=== PATIENT | female | born 1955 | race Caucasian/White ===

== ENCOUNTER 2016-12-14 10:52 | Day surgery (SDC) | payer OTHER ==
[2016-12-14] MEDS ORDERED: LACTATED RINGERS 1,000 ML IV ONE (11:25)
[2016-12-14] MEDS ORDERED: MIDAZOLAM 2 MG/2 ML VIAL IVP ONE (14:00)
[2016-12-14] MEDS ORDERED: fentaNYL 100 MCG/2 ML VIAL IVP ONE (14:00)
[2016-12-14 14:16] VITALS: BP 107/61
== END 2016-12-14 10:53 | disposition home or self-care (01) ==
LOC: SDS 10:52
PROVIDERS: ATTEND Surgery
PROC: 0DJD8ZZ Inspection of Lower Intestinal Tract, Via Natural or Artificial Opening Endoscopic (ICD-10-PCS; principal; 2016-12-14 12:30)
DX: Z12.11 Encounter for screening for malignant neoplasm of colon (principal); K57.30 Diverticulosis of large intestine without perforation or abscess without bleeding; I10 Essential (primary) hypertension; K21.9 Gastro-esophageal reflux disease without esophagitis; Z87.891 Personal history of nicotine dependence
CPT/HCPCS: 45378; J7120

== ENCOUNTER 2020-10-31 08:00 | Outpatient (CLI) | payer OTHER ==
[2020-10-31 20:45] LABS: BACTERIAL VAGINOSIS DNA NEGATIVE (NEGATIVE); CANDIDA GLABRATA DNA NEGATIVE (NEGATIVE); CANDIDA GROUP DNA NEGATIVE (NEGATIVE); CANDIDA KRUSEI DNA NEGATIVE (NEGATIVE); TRICHOMONAS VAGINALIS DNA NEGATIVE (NEGATIVE)
== END 2020-10-31 23:59 | disposition home or self-care (01) ==
LOC: LAB.S 08:00
PROVIDERS: ATTEND Physician Assistant
DX: B37.3 Candidiasis of vulva and vagina (principal); R35.0 Frequency of micturition
CPT/HCPCS: 87077; 87086; 87181; 87661; 87801

== ENCOUNTER 2021-01-27 08:44 | Outpatient (CLI) | payer OTHER ==
--- NOTE | 2021-01-31 09:37 | Mammography Report ---
BILATERAL DIGITAL SCREENING MAMMOGRAM 3D/2D WITH EXAGGERATED CC: 01/27/2021 CLINICAL: Family history of breast cancer. Comparison is made to exams dated: 06/17/2019 mammogram, 01/25/2018 mammogram, and 01/16/2017 mammogram - [facility]. The tissue of both breasts is heterogeneously dense. This may lower the sensit ivity of mammography. There are benign calcifications in both breasts. There also are benign post operative findings in th e left breast. No significant masses, calcifications, or other findings are seen in either breast. There has been no significant interval change. IMPRESSION: BENIGN There is no mammographic evidence of malignancy. A 1 year screening mammogram is recommended. This exam was interpreted at Station ID: [id number]. NOTE: For mammograms, a report in lay terms will be sent to the patient. Approximately 15% of breast malignancies will not be visualized mammographically. In the management of a palpable breast mass, a negative mammogram must not discourage biopsy of a clinically suspicious lesion. Electronically Signed By: Good Irwin M.D. [email or web address]/rory:01/27/2021 10:17:42 ACR BI-RADS Category 2: Benign Finding(s) 3342F PARENCHYMAL PATTERN: (D) - The breast(s) demonstrate(s) heterogeneously dense fibroglandular britany rivero. BI-RADS CATEGORY: (2) - 2 RECOMMENDATION: (ANNUAL) - Recommend routine annual screening mammography. [id number] 1 year screening LATERALITY: (B)
== END 2021-01-27 08:45 | disposition home or self-care (01) ==
LOC: DI.S 08:44
DX: Z12.31 Encounter for screening mammogram for malignant neoplasm of breast (principal); Z80.3 Family history of malignant neoplasm of breast

== ENCOUNTER 2023-04-11 09:50 | Outpatient (CLI) | payer MEDICARE, OTHER ==
--- NOTE | 2023-04-12 10:58 | Mammography Report ---
BILATERAL DIGITAL SCREENING MAMMOGRAM 3D/2D: 04/11/2023 Comparison is made to exams dated: 01/27/2021 mammogram - [facility], 06/17/2019 mamm ogram, 01/25/2018 mammogram, 01/16/2017 mammogram - [facility], and 12/28/2014 mammogram - [facility]. Both breasts are heterogeneously dense, which may obscure small masses (category c / 51-75% glandular tissue). There are benign post operative findings in the left breast. No significant masses, calcifications, or other findings are seen in either breast. IMPRESSION: BENIGN There is no mammographic evidence of malignancy. A 1 year screening mammogram is recommended. Based on the Tyrer Cuzick model (a risk assessment model) the patients lifetime risk is 16.2% and he r 10 year risk is 8.9%. According to the ACR, ACS, and NCCN guidelines, an annual breast MRI exam saurabh ng with mammogram is recommended if the patients lifetime risk is 20% or greater. This exam was interpreted at Station ID: [id number]. NOTE: For mammograms, a report in lay terms will be sent to the patient. Approximately 15% of breast malignancies will not be visualized mammographically. In the management of a palpable breast mass, a negative mammogram must not discourage biopsy of a clinically suspicious lesion. Electronically Signed By: Pamella Bell M.D., PH.D kareen/rory:04/11/2023 16:38:07 letter sent: No_Letter ACR BI-RADS Category 2: Benign Finding(s) 3342F PARENCHYMAL PATTERN: (D) - The breast(s) demonstrate(s) heterogeneously dense fibroglandular britany rivero. BI-RADS CATEGORY: (2) - 2 Mammogram [id number] 1 year screening LATERALITY: (B)
== END 2023-04-11 09:51 | disposition home or self-care (01) ==
LOC: DI.S 09:50
PROVIDERS: ATTEND Family Medicine
DX: Z12.31 Encounter for screening mammogram for malignant neoplasm of breast (principal); R92.333 Mammographic heterogeneous density, bilateral breasts